=== PATIENT | male | born 1990 | race Caucasian/White ===

== ENCOUNTER 2017-01-01 12:41 | Emergency (ER) | payer OTHER ==
[2017-01-01 13:14] VITALS: RESP 20
[2017-01-01] MEDS ORDERED: Sodium Chloride 0.9% 1,000 ML IV STA (14:58)
--- NOTE | 2017-01-01 15:20 | C.PDOC ---
History Of Present Illness 26 y/o male presents to the ED complaining of epigastric abdominal pain x 3 weeks. Patient also reports vomiting since last night. at bedside reports that patient has a history of similar 3 years prior, was evaluated in the ER and referred to GI doctor where he had a normal upper endoscopy. Patient denies fever, chills, diarrhea, back pain, chest pain, shortness of breath, or other complaints. Time Seen by Provider: 01/01/17 14:42 Chief Complaint (Nursing): Abdominal Pain History Per: Patient History/Exam Limitations: no limitations Onset/Duration Of Symptoms: Days (3 weeks), Gradual, Persistent Current Symptoms Are (Timing): Still Present Location Of Pain/Discomfort: Epigastric Radiation Of Pain To:: None Associated Symptoms: Vomiting Recent travel outside of the [place]: No Past Medical History Reviewed: Historical Data, Nursing Documentation, Vital Signs Vital Signs: Last Vital Signs Temp 97.8 F 01/01/17 17:21 Pulse 80 01/01/17 17:21 Resp 20 01/01/17 17:21 BP 120/72 01/01/17 17:21 Pulse Ox 100 01/01/17 17:49 - Medical History PMH: No Chronic Diseases Surgical History: Appendectomy Family History: States: Unknown Family Hx - Social History Hx Tobacco Use: No Hx Alcohol Use: No Hx Substance Use: No - Immunization History Hx Tetanus Toxoid Vaccination: No Hx Influenza Vaccination: No Hx Pneumococcal Vaccination: No Review Of Systems Except As Marked, All Systems Reviewed And Found Negative. Constitutional: Negative for: Fever, Chills Cardiovascular: Negative for: Chest Pain Respiratory: Negative for: Shortness of Breath Gastrointestinal: Positive for: Vomiting, Abdominal Pain. Negative for: Diarrhea Musculoskeletal: Negative for: Back Pain Physical Exam - Physical Exam Appears: Non-toxic, No Acute Distress, Other (uncomfortable) Skin: Normal Color, Warm, Dry Head: Atraumatic, Normacephalic Eye(s): bilateral: Normal Inspection, PERRL Oral Mucosa: Moist Neck: Normal ROM, Supple Chest: Symmetrical, No Tenderness Cardiovascular: Rhythm Regular Respiratory: Normal Breath Sounds, No Rales, No Rhonchi, No Wheezing Gastrointestinal/Abdominal: Soft, Tenderness (diffuse, mostly to upper abdomen) , No Guarding, No Rebound, Other (no active vomiting; pt reports nausea w/ palpation) Back: Normal Inspection, No CVA Tenderness Extremity: Normal ROM, No Swelling Neurological/Psych: Oriented x3, Normal Speech, Normal Cognition ED Course And Treatment - Laboratory Results Result Diagrams: 01/01/17 15:15 01/01/17 15:15 O2 Sat by Pulse Oximetry: 100 (ra) Pulse Ox Interpretation: Normal - CT Scan/US Ultrasound Other Rad Studies (CT/US): Read By Radiologist, Radiology Report Reviewed CT/US Interpretation: Accession No. : [id number]. Patient Name / ID : JADE PRETTY / [id number]. Exam Date : 01/01/2017 15:36:16 ( Approved ). Study Comment : Sex / Age : M / 26Y. Creator : CRISTINA BEARD MD. Dictator : CRISTINA BEARD MD. Utility Bill Complaints Investigator : Family Services Manager : CRISTINA BEARD MD. Approver2 : Report Date : 01/01/2017 16:20:21. My Comment : . HISTORY: epigastric pain, vomiting. COMPARISON: None. TECHNIQUE: Sonographic evaluation of the right upper quadrant of the abdomen. FINDINGS: LIVER: Measures 12.6 cm in length. Normal echogenicity of the liver parenchyma. No mass. No intrahepatic bile duct dilatation. GALLBLADDER: The gallbladder is contracted. There is a 3 mm nonmobile mildly echogenic lesion along the posterior wall in the fundus of the gallbladder. Apparent mild gallbladder thickening and likely related to underdistention. COMMON BILE DUCT: Measures 4.0 mm. No stones. No dilatation. PANCREAS: Unremarkable as visualized. No mass. No ductal dilatation. RIGHT KIDNEY: Measures 11.4 cm in length. Normal echogenicity. No calculus, mass, or hydronephrosis. AORTA: No aneurysmal dilatation. IVC: Unremarkable. OTHER FINDINGS: There is a small amount of free fluid in the Morison's pouch. IMPRESSION: Gallbladder is contracted. Suspect 3 mm polyp in the fundus of the gallbladder. Apparent mild gallbladder wall thickening is likely related to underdistention. No pericholecystic fluid. Small amount of fluid in the Morison's pouch is of uncertain etiology. Progress Note: Ultrasound, blood work, and urinalysis were ordered. Patient was treated with Protonix IVP, Zofran IVP, and IV fluids. On reevaluation, patient reports improvement of abdominal pain. Patient is resting comfortably, abdomen remains soft, and patient is tolerating PO. Patient discharged home and instructed to follow up with physician/clinic in 1-2 days for further evaluation or return to ED if symptoms persist or worsen. Disposition - Disposition Referrals: [facility] [Outside] Disposition: HOME/ ROUTINE Disposition Time: 17:45 Condition: IMPROVED Additional Instructions: Follow up with your PMD and Printing Sales Representative within 1-2 days. Return to ED if feel worse. Prescriptions: Famotidine [Pepcid] 20 mg PO BID #20 tab Ondansetron [Zofran Odt] 1 - 2 tab PO .Q4-6H PRN #20 odt PRN Reason: Nausea/Vomiting Instructions: Epigastric Pain (ED), Acute Nausea and Vomiting (ED) - Clinical Impression Clinical Impression: Abdominal pain, Vomiting - PA / ENGINEERING FACULTY / Resident Statement MD/DO has reviewed & agrees with the documentation as recorded. - Scribe Statement The provider has reviewed the documentation as recorded by the Scribe (Jessica Abad) All medical record entries made by the Scribe were at my direction and personally dictated by me. I have reviewed the chart and agree that the record accurately reflects my personal performance of the history, physical exam, medical decision making, and the department course for this patient. I have also personally directed, reviewed, and agree with the discharge instructions and disposition.
[2017-01-01 15:21] LABS: BASO % 0.4 % (0.0-2.0); EOS # 0.1 K/uL (0.0-0.7); EOS % 2.1 % (0.0-4.0); HEMATOCRIT 47.4 % (35.0-51.0); LYMPH # 1.7 K/uL (1.0-4.3); LYMPH % 25.2 % (20.0-40.0); MEAN CELL VOLUME 88.2 fL (80.0-94.0); MEAN CORPUSCULAR HEMOGLOBIN 28.8 pg (27.0-31.0); MEAN CORPUSCULAR HGB CONC 32.7 g/dL (33.0-37.0); MEAN PLATELET VOLUME 10.4 fL (7.2-11.7); MONO # 0.5 K/uL (0.0-0.8); MONO % 8.1 % (0.0-10.0); RED CELL DISTRIBUTION WIDTH 13.5 % (11.5-14.5); WHITE BLOOD COUNT 6.6 K/uL (4.8-10.8)
[2017-01-01 15:24] LABS: RBC URINE < 1 /hpf (0-3); URINE BILIRUBIN NEGATIVE (NEGATIVE); URINE BLOOD NEGATIVE (NEGATIVE); URINE COLOR Yellow (YELLOW); URINE GLUCOSE (UA) NORMAL (Normal); URINE KETONE NEGATIVE (NEGATIVE); URINE LEUKOCYTE ESTERASE NEG Leu/uL (Negative); URINE PROTEIN NEGATIVE (NEGATIVE); URINE UROBILINOGEN NORMAL mg/dL (0.2-1.0); WBC URINE 1 /hpf (0-5)
[2017-01-01 15:36] LABS: CHLORIDE 95 mmol/L (98-107); SODIUM 140 mmol/L (132-148)
[2017-01-01 15:37] LABS: POTASSIUM 3.6 mmol/L (3.6-5.2)
[2017-01-01 15:39] LABS: ALB/GLOB RATIO 1.5 (1.0-2.1); ALKALINE PHOSPHATASE 87 U/L (38-126); ALT/SGPT 22 U/L (21-72); AST/SGOT 31 U/L (17-59); BILIRUBIN,TOTAL 0.5 mg/dL (0.2-1.3); BLOOD UREA NITROGEN 13 mg/dL (9-20); CARBON DIOXIDE 31 mmol/L (22-30); GFR AFRICAN-AMERICAN > 60; GLUCOSE,RANDOM 82 mg/dL (75-110)
[2017-01-01 15:40] LABS: CALCIUM 8.4 mg/dl (8.6-10.4)
--- NOTE | 2017-01-01 16:21 | US ---
HISTORY: epigastric pain, vomiting COMPARISON: None. TECHNIQUE: Sonographic evaluation of the right upper quadrant of the abdomen. FINDINGS: LIVER: Measures 12.6 cm in length. Normal echogenicity of the liver parenchyma. No mass. No intrahepatic bile duct dilatation. GALLBLADDER: The gallbladder is contracted. There is a 3 mm nonmobile mildly echogenic lesion along the posterior wall in the fundus of the gallbladder. Apparent mild gallbladder thickening and likely related to underdistention. COMMON BILE DUCT: Measures 4.0 mm. No stones. No dilatation. PANCREAS: Unremarkable as visualized. No mass. No ductal dilatation. RIGHT KIDNEY: Measures 11.4 cm in length. Normal echogenicity. No calculus, mass, or hydronephrosis. AORTA: No aneurysmal dilatation. IVC: Unremarkable. OTHER FINDINGS: There is a small amount of free fluid in the Morison's pouch. IMPRESSION: Gallbladder is contracted. Suspect 3 mm polyp in the fundus of the gallbladder. Apparent mild gallbladder wall thickening is likely related to underdistention. No pericholecystic fluid. Small amount of fluid in the Morison's pouch is of uncertain etiology.
[2017-01-01 17:23] VITALS: BP 120/72; PULSE 80; TEMP 97.8
[2017-01-01 17:48] VITALS: O2SAT 100
== END 2017-01-01 18:01 | disposition home or self-care (01) ==
LOC: C.ER 12:41
DX: R10.13 Epigastric pain (principal); R11.10 Vomiting, unspecified
CPT/HCPCS: 76705; 80053; 81001; 83690; 85025; 96374; 96375; 99284; C9113; J2405; J7040